=== PATIENT | female | born 1990 | race African-American/Black ===

== ENCOUNTER 2022-04-27 22:03 | Emergency (ER) | payer OTHER ==
[~2022-04-27] VITALS: Ht 162.6 cm; Wt 56.7 kg
[2022-04-27 23:42] LABS: HEMATOCRIT 33.8 % (31.2-41.9); MEAN CORPUSCULAR HEMOGLOBIN 27.1 uug (24.7-32.8); MEAN CORPUSCULAR VOLUME 82.8 fL (75.5-95.3); PLATELET COUNT (AUTO) 168 K/uL (179-408)
--- NOTE | 2022-04-27 23:45 | NUR ---
Dr. Amaro at bedside. MSE in progress.
[2022-04-28 00:34] LABS: ALANINE AMINOTRANSFERASE 14 U/L (14-59); ALKALINE PHOSPHATASE 62 U/L (50-136); ASPARTATE AMINOTRANSFERASE 22 U/L (15-37); BILIRUBIN,DIRECT 0.1 mg/dL (0.0-0.2); BILIRUBIN,TOTAL 0.2 mg/dL (0.2-1.0); CARBON DIOXIDE 29 mmol/L (21-32); CHLORIDE 102 mmol/L (98-107); CREATININE 0.8 mg/dL (0.6-1.3); GLUCOSE 98 mg/dL (74-106); POTASSIUM 3.5 mmol/L (3.5-5.1); TOTAL PROTEIN, SERUM 8.1 g/dL (6.4-8.2); UREA NITROGEN, BLOOD 3 mg/dL (7-18)
[2022-04-28 00:47] LABS: BAND % (MANUAL) 6 % (0-10); LYMPHOCYTES % (MANUAL) 43 % (20-40); MONOCYTES % (MANUAL) 10 % (2-10); NEUTROPHILS % (MANUAL) 41 % (42-75)
[2022-04-28] MEDS ORDERED: IV NORMAL SALINE 250 ML IV ONE (02:29)
[2022-04-28] MEDS ORDERED: SWABABLE VALVE TRANSFER SET EA MC ONE (02:29)
[2022-04-28] MEDS ORDERED: IOHEXOL 350 100 ML INFUS..BTL ONE (02:29)
--- NOTE | 2022-04-28 02:38 | NUR ---
Patient taken downstairs for CT.
--- NOTE | 2022-04-28 03:00 | NUR ---
Patient back from CT.
--- NOTE | 2022-04-28 04:45 | NUR ---
Patient discharged to home in stable condition. A/O x 4. NAD noted. Ambulatory with a steady gait. All belongings with patient. Written and verbal after care instructions given. Patient verbalizes understanding of instructions. Stressed follow up or return to ER for worsening s/s.
[2022-04-28 05:04] VITALS: BP 112/73
== END 2022-04-28 04:45 | disposition home or self-care (01) ==
LOC: ER 22:03
DX: R07.9 Chest pain, unspecified (principal); Z82.49 Family history of ischemic heart disease and other diseases of the circulatory system; I44.0 Atrioventricular block, first degree; R79.1 Abnormal coagulation profile; D72.819 Decreased white blood cell count, unspecified
CPT/HCPCS: 99285; 71045; 80076; 80048; 85025; 85379; 84484 ×2; 84702; 36415 ×2; 93005 ×2; 71275; 85007; Q9967; 70030-TC